=== PATIENT | female | born 1985 | race Caucasian/White ===

== ENCOUNTER → 2023-08-15 09:57 | Outpatient (CLI) | payer BC, SELFPAY ==
[2023-08-15 21:30] LABS: Add Manual Diff / Slide Review NO; Basophils Absolute Auto 0 /uL (0-100); Basophils Percent Auto 0.5 % (0-2); Eosinophils Absolute Auto 0 /uL (0-450); Eosinophils Percent Auto 0.5 % (2-4); Hematocrit 35.9 % (36-46); Lymphocytes Absolute Auto 1100 /uL (1100-4500); Lymphocytes Percent Auto 23.9 % (25-40); Mean Corpuscular HGB Conc 33.4 % (30-36); Mean Corpuscular Hemoglobin 32.2 PG (26-34); Mean Corpuscular Volume 96.2 fL (80-100); Monocytes Absolute Auto 300 /uL (0-900); Monocytes Percent Auto 7.2 % (3-14); Neutrophils Absolute Auto 3200 /uL (1500-7000); Neutrophils Percent Auto 67.9 % (50-75); Platelet Count 411 X10^3/uL (150-400); Red Blood Cell Count 3.73 X10^6/uL (4.0-5.2); Red Cell Distribution Width 12.6 % (11.6-14.8); White Blood Cell Count 4.7 X10^3/uL (4.5-11.0)
[2023-08-15 21:40] LABS: Erythrocyte Sedimentation Rate 8 MM/HR (0-20)
[2023-08-15 21:47] LABS: Vitamin D 25 Hydroxy (D3) 14.4 ng/mL (30.0-100.0)
[2023-08-15 21:53] LABS: HEMOLYSIS < 15 (0-50); Iron 114 ug/dL (37-170)
[2023-08-15 21:55] LABS: Alanine Aminotransferase 13 IU/L (<35); Albumin 4.3 g/dL (3.5-5.0); Albumin Globulin Ratio 1.5 (1.0-2.8); Alkaline Phosphatase 74 U/L (38-126); Aspartate Aminotransferase 23 IU/L (14-36); BUN Creatinine Ratio 19.2 (6-22); Bilirubin Total 0.8 mg/dL (0.2-1.3); Blood Urea Nitrogen 10 mg/dL (7-17); Calcium 9.1 mg/dL (8.4-10.2); Carbon Dioxide 24 mmol/L (22-32); Chloride 104 mmol/L (98-107); Estimated Glomerular Filt Rate > 60 mL/min (>60); Gamma Glutamyl Transpeptidase 12 U/L (12-43); Globulin 2.9 g/dL (1.7-4.1); Glucose 96 mg/dL (70-100); HEMOLYSIS < 15 (0-50); Sodium 135 mmol/L (137-145); Total Protein 7.2 g/dL (6.3-8.2)
[2023-08-15 22:00] LABS: High Sensitivity CRP - Cardiac < 0.3 mg/L (1.0-3.0)
[2023-08-15 22:06] LABS: Percent Iron Saturation 40 % (15-50); Total Iron Binding Capacity 283 ug/dL (265-497); Transferrin 230 mg/dL (206-381)
[2023-08-15 22:13] LABS: Free T3, Triiodothyronine Free 3.54 pg/mL (2.77-5.27); Free T4, Direct Thyroxine 1.15 ng/dL (0.78-2.19)
[2023-08-15 22:26] LABS: Thyroid Stimulating Hormone 0.795 uIU/mL (0.47-4.68)
[2023-08-15 22:28] LABS: Hemoglobin A1C% w Est Avg Glu 5.2 % (4.0-6.0)
[2023-08-15 22:33] LABS: Ferritin 30 ng/mL (6-137)
[2023-08-15 22:48] LABS: Vitamin B12 213 pg/mL (239-931)
[2023-08-20 07:21] LABS: Anti Thyroglobulin Antibody <1.0 IU/mL (0.0-0.9); Insulin Level Total 1.9 uIU/mL (2.6-24.9); Thyroid Peroxidase Antibodies 20 IU/mL (0-34)
[2023-08-20 07:22] LABS: Folate, RBC 843 ng/mL (>498); Hematocrit 37.1 % (34.0-46.6); Hemolysate 312.9 ng/mL (Not Estab.); Magnesium, RBC 3.7 mg/dL (3.7-7.0); Methylmalonic Acid,Serum 311 nmol/L (0-378); Zinc 61 ug/dL (44-115)
[2023-08-26 10:36] LABS: DQ8 (DQA1 03XX, DQB1 0302) Negative (.)
== END ==
DX: E55.9 Vitamin D deficiency, unspecified (principal); E72.19 Other disorders of sulfur-bearing amino-acid metabolism; F90.9 Attention-deficit hyperactivity disorder, unspecified type; L20.89 Other atopic dermatitis; L71.9 Rosacea, unspecified; R19.6 Halitosis; E63.9 Nutritional deficiency, unspecified; B49 Unspecified mycosis; R53.83 Other fatigue; R19.8 Other specified symptoms and signs involving the digestive system and abdomen
CPT/HCPCS: 80053; 81377; 82306; 82525; 82607; 82728; 82747; 82784; 82977; 83036; 83090; 83525; 83540; 83550; 83655; 83735; 83921; 84439; 84443; 84481; 84630; 85014; 85025; 85651; 86140; 86231; 86258; 86364; 86376; 86800

== ENCOUNTER → 2023-11-15 16:27 | Outpatient (CLI) | payer BC, SELFPAY ==
--- NOTE | 2023-11-15 16:28 | DI.US.S_ITS ---
PROCEDURE: US PELVIC COMPLETE INDICATIONS: OVARIAN CYST TECHNIQUE: Real-time scanning was performed of the pelvic organs, with image documentation. Additional endovaginal scanning was necessary due to incomplete visualization of the adnexal and endometrial structures by transabdominal scanning. COMPARISON: None. FINDINGS: Uterus: Uterus is anteverted and normal in size at 7.6 x 6.5 x 4.3 cm. The myometrium is homogeneous. The endometrium measures 9 mm combined thickness. No uterine fibroids. Ovaries: The right ovary measures 3.7 x 3.3 x 2.3 cm, with a calculated ovarian volume of 6.5 cc. The left ovary measures 4.3 x 3.5 x 2.5 cm, with a calculated ovarian volume of 19.7 cc. Possible left ovarian corpus luteal cyst measuring 1.4 x 1.3 x 1.1 cm. The ovaries otherwise have a normal sonographic appearance. Less than 12 follicles can be seen in each ovary. No adnexal masses are seen. Other: No pathologic free abdominal or pelvic fluid. IMPRESSION: Possible corpus luteal cyst within the left ovary measuring up to 1.4 cm. Consider follow-up ultrasound in 6-12 weeks to assess for stability or resolution. Otherwise, normal pelvic ultrasound. We strive to produce accurate, complete, and clear reports of imaging services. To assist us in improving patient care, this report was composed using standard report templates and voice recognition software. Therefore, it may contain abnormal punctuation, insertions and/or omissions. Occasional wrong-word or sound-alike substitutions may occur. Though we review the report and make efforts to correct it, we do recommend that the report be read carefully in proper context to recognize any text inaccuracies. Dictated by: Erasto Lloyd M.D. on 11/15/2023 at 21:16 Approved by: Erasto Lloyd M.D. on 11/15/2023 at 21:18
== END ==
LOC: US 16:27
PROVIDERS: Referring Provider Family Medicine; Visit Provider Family Medicine
DX: N83.202 Unspecified ovarian cyst, left side (principal)
CPT/HCPCS: 76830; 76856

== ENCOUNTER → 2024-03-25 10:54 | Outpatient (CLI) | payer BC, SELFPAY ==
[2024-03-25 19:22] LABS: Add Manual Diff / Slide Review NO; Basophils Absolute Auto 0 /uL (0-100); Basophils Percent Auto 0.3 % (0-2); Eosinophils Absolute Auto 0 /uL (0-450); Eosinophils Percent Auto 0.4 % (2-4); Hematocrit 37.9 % (36-46); Hemoglobin 12.6 g/dL (12.0-16.0); Lymphocytes Absolute Auto 1300 /uL (1100-4500); Lymphocytes Percent Auto 21.1 % (25-40); Mean Corpuscular HGB Conc 33.3 % (30-36); Mean Corpuscular Hemoglobin 31.9 PG (26-34); Mean Corpuscular Volume 95.8 fL (80-100); Monocytes Absolute Auto 500 /uL (0-900); Monocytes Percent Auto 7.6 % (3-14); Neutrophils Absolute Auto 4400 /uL (1500-7000); Neutrophils Percent Auto 70.6 % (50-75); Platelet Count 323 X10^3/uL (150-400); Red Blood Cell Count 3.95 X10^6/uL (4.0-5.2); Red Cell Distribution Width 13.1 % (11.6-14.8); White Blood Cell Count 6.3 X10^3/uL (4.5-11.0)
[2024-03-25 19:29] LABS: Alanine Aminotransferase 16 IU/L (<35); Albumin 4.4 g/dL (3.5-5.0); Albumin Globulin Ratio 1.4 (1.0-2.8); Alkaline Phosphatase 63 U/L (38-126); Aspartate Aminotransferase 24 IU/L (14-36); Bilirubin Total 0.8 mg/dL (0.2-1.3); Blood Urea Nitrogen 14 mg/dL (7-17); Calcium 9.4 mg/dL (8.4-10.2); Carbon Dioxide 26 mmol/L (22-32); Chloride 105 mmol/L (98-107); Estimated Glomerular Filt Rate > 60 mL/min (>60); Globulin 3.1 g/dL (1.7-4.1); Glucose 106 mg/dL (70-100); HEMOLYSIS < 15 (0-50); Sodium 136 mmol/L (137-145); Total Protein 7.5 g/dL (6.3-8.2)
[2024-03-25 19:59] LABS: TSH w/ Reflex to FT4 1.35 uIU/mL (0.47-4.68)
== END ==
PROVIDERS: PCP Physician Assistant; Visit Provider Physician Assistant
DX: R10.2 Pelvic and perineal pain (principal); D64.9 Anemia, unspecified; R35.0 Frequency of micturition; R19.00 Intra-abdominal and pelvic swelling, mass and lump, unspecified site
CPT/HCPCS: 80053; 84443; 85025; 86304

== ENCOUNTER → 2024-04-01 08:59 | Outpatient (CLI) | payer BC, SELFPAY ==
--- NOTE | 2024-04-01 09:01 | DI.US.S_ITS ---
PROCEDURE: US PELVIC COMPLETE INDICATIONS: PELVIC FULLNESS. DYSPAREUNIA. FOLLOW UP US 11/15/23. TECHNIQUE: Real-time scanning was performed of the pelvic organs, with image documentation. Additional endovaginal scanning was necessary due to incomplete visualization of the adnexal and endometrial structures by transabdominal scanning. COMPARISON: [facility], US, US PELVIC COMPLETE, 11/15/2023, 16:51. FINDINGS: Uterus: Uterus is anteverted and normal in size at 7.5 x 4.2 x 3.4 cm. The myometrium is homogeneous. The endometrium measures 6.9 mm combined thickness. Normal vascularity in the uterus and endometrium. Ovaries: The right ovary measures 3.5 x 1.8 x 1.9 cm, with a calculated ovarian volume of 6.0 cc. The left ovary measures 4.2 x 3.0 x 2.1 cm, with a calculated ovarian volume of 14.0 cc. There is an involuting peripherally vascular probable corpus luteum in the left ovary. A complex, probably hemorrhagic cyst in the left ovary measures up to 1.8 cm. Less than 12 follicles can be seen in each ovary. No adnexal masses are seen. Other: No pathologic free abdominal or pelvic fluid. IMPRESSION: Physiologic appearance left ovarian cysts and follicles. Normal uterus. We strive to produce accurate, complete, and clear reports of imaging services. To assist us in improving patient care, this report was composed using standard report templates and voice recognition software. Therefore, it may contain abnormal punctuation, insertions and/or omissions. Occasional wrong-word or sound-alike substitutions may occur. Though we review the report and make efforts to correct it, we do recommend that the report be read carefully in proper context to recognize any text inaccuracies. Dictated by: Arabella Reyes M.D. on 04/01/2024 at 11:17 Approved by: Arabella Reyes M.D. on 04/01/2024 at 11:21
== END ==
PROVIDERS: PCP Physician Assistant; Referring Provider Physician Assistant; Visit Provider Physician Assistant
DX: N63.21 Unspecified lump in the left breast, upper outer quadrant (principal); N64.4 Mastodynia; R10.2 Pelvic and perineal pain
CPT/HCPCS: 76642; 76830; 76856

== ENCOUNTER → 2024-04-01 09:01 | Outpatient (CLI) | payer BC, SELFPAY ==
--- NOTE | 2024-04-01 09:02 | DI.US.S_ITS ---
ULTRASOUND OF LEFT BREAST AND AXILLA: 04/01/2024 CLINICAL: Palpable left breast lump and focal pain. No prior exams were available for comparison. Color flow and real-time ultrasound of the left breast axilla were performed. [place] scale images of the real-time examination were reviewed. There is a 1.6 cm x 0.7 cm x 1.5 cm wider than tall oval mass in the left breast at 2 o'clock middle depth 2 cm from the nipple. This mass is lobulated with a few angular margins. This oval mass is hypoechoic with no posterior acoustic shadowing or enhancement. This correlates as palpated and with area of clinical concern. Color flow imaging demonstrates that there is vascularity present. No significant abnormalities were seen sonographically in the left axilla. IMPRESSION: SUSPICIOUS The 1.6 cm x 0.7 cm x 1.5 cm wider than tall oval, lobulated mass in the left breast is suspicious of malignancy. An ultrasound guided biopsy is recommended. However, the patient had initially declined mammographic evaluation today and is now amenable to return for completion evaluation prior to her biopsy. Patient will return for a bilateral diagnostic mammogram with possible bilateral ultrasound. This will be followed by ultrasound guided left breast biopsy. Findings and recommendations were discussed over the telephone with the patient by Dr. Barton during today's evaluation. This exam was interpreted at Station ID: [id number]. Electronically Signed By: Rj Barton M.D. aty/:04/01/2024 11:35:45 letter sent: Additional Imaging Needed ACR BI-RADS Category 4: Suspicious
== END ==
PROVIDERS: PCP Physician Assistant; Referring Provider Physician Assistant; Visit Provider Physician Assistant
DX: N63.21 Unspecified lump in the left breast, upper outer quadrant (principal); N64.4 Mastodynia
CPT/HCPCS: 76642